=== PATIENT | female | born 1975 | race Asian ===

== ENCOUNTER 2019-02-06 17:19 | Emergency (ER) | payer BC ==
[~2019-02-06] VITALS: Ht 152.4 cm; Wt 59.0 kg
--- NOTE | 2019-02-06 17:23 | NUR ---
BIB [facility], SOB, CHOKING EPISODE POSSIBLE FOREIGN BODY ON THROAT. TO ER BED 8, HOOKED TO MONITOR, IVP STARTED AT LH 20G. DR GREENE AT BEDSIDE.
[2019-02-06] MEDS ORDERED: LIDOCAINE /MPF 1% VIAL 5 ML VIAL ONE (17:24)
--- NOTE | 2019-02-06 17:25 | NUR ---
TWO ANESTHESIOLOGIST AT BEDSIDE WITH DR GREENE TO EVALUATE PATIENT
[2019-02-06] MEDS ORDERED: IV NS 0.9% 500 ML BAG IV ONE (17:30)
[2019-02-06] MEDS ORDERED: ONDANSETRON HCL/PF 4 MG/2 ML VIAL ONE (17:35)
[2019-02-06] MEDS ORDERED: GLUCAGON,HUMAN RECOMBINANT 1 MG/VIAL VIAL ONE (17:35)
[2019-02-06 17:43] LABS: BASOPHILS % (AUTO) 0.5 % (0.0-2.0); HEMATOCRIT 42 % (33-45); HEMOGLOBIN 13.7 g/dL (11.5-14.8); LYMPHOCYTES # (AUTO) 4.4 /CMM (0.8-4.8); LYMPHOCYTES % (AUTO) 44.1 % (20.0-44.0); MEAN CORPUSCULAR HGB CONC 33 g/dl (31.0-36.0); MEAN CORPUSCULAR VOLUME 91 fL (82-100); MONOCYTES # (AUTO) 0.4 /CMM (0.1-1.30); MONOCYTES % (AUTO) 4.2 % (2.0-12.0); NEUTROPHILS % (AUTO) 50.2 % (43.0-81.0); PLATELET COUNT (AUTO) 287 /CMM (150-450); RED BLOOD CELL COUNT(AUTO) 4.57 MIL/uL (4.0-5.2); WHITE BLOOD COUNT (AUTO) 9.9 K/uL (4.3-11.0)
[2019-02-06] MEDS ORDERED: WATER FOR INJECTION,STERILE 10 ML ONE (17:46)
[2019-02-06 17:51] LABS: CALCIUM, SERUM 8.7 mg/dL (8.5-10.1); CREATININE 0.6 mg/dL (0.6-1.3); POTASSIUM 3.7 mmol/L (3.5-5.1)
[2019-02-06] MEDS ORDERED: ONDANSETRON HCL/PF 4 MG/2 ML VIAL IV ONE (18:00)
[2019-02-06] MEDS ORDERED: GLUCAGON,HUMAN RECOMBINANT 1 MG/VIAL VIAL IV ONE (18:00)
--- NOTE | 2019-02-06 18:12 | NUR ---
PATIENT VERBALIZES "I FEEL LIKE MY THROAT IS NARROWING".
--- NOTE | 2019-02-06 18:20 | NUR ---
PATIENT WAS ABLE TO TOLERATE SIPS OF WATER.
--- NOTE | 2019-02-06 19:14 | NUR ---
IV removed. Catheter intact and site benign. Pressure and 4x4 applied to site. No bleeding noted.Patient discharged to home in stable condition. Written and verbal after care instructions given. Patient verbalizes understanding of instruction.
[2019-02-06 19:15] VITALS: BP 121/70
== END 2019-02-06 19:15 | disposition home or self-care (01) ==
LOC: ER 17:21
DX: R06.03 Acute respiratory distress (principal); T18.128A Food in esophagus causing other injury, initial encounter; K21.9 Gastro-esophageal reflux disease without esophagitis; R11.10 Vomiting, unspecified; Y92.89 Other specified places as the place of occurrence of the external cause
CPT/HCPCS: 36415; 70360; 71045; 80048; 85025; 93005; 96361; 96374; 96375; 99291; J1610; J2405; J3490